=== PATIENT | female | born 1965 | race Caucasian/White ===

== ENCOUNTER 2016-11-12 04:53 | Emergency (ER) | payer BC ==
[2010-06-25 07:40] VITALS: BMI 25.1
[2016-11-12 05:38] LABS: BASOPHILS 0.1 % (0.0-2.0); EOSINOPHILS 0.5 % (0-7); HEMATOCRIT 42.9 % (36.0-48.0); IMMATURE GRANULOCYTES 0.3 % (0-5); LYMPHOCYTES 16.6 % (15-50); MCH 30.6 pg (26.0-34.0); MCHC 32.6 g/dL (31.0-37.0); MCV 93.7 fL (80.0-100.0); MEAN PLATELET VOLUME 9.7 fL (7.4-10.4); MONOCYTES 9.5 % (2-11); PLATELET COUNT 393 10x3/uL (130-400); RBC 4.58 10x6/uL (4.00-5.40); RDW 12.1 % (11.5-14.5)
[2016-11-12 06:00] LABS: ALBUMIN 3.9 g/dL (3.4-5.0); ALKALINE PHOSPHATASE 64 U/L (46-116); ALT (SGPT) 37 U/L (10-68); AMYLASE - SERUM 36 U/L (25-115); BILIRUBIN - TOTAL 0.51 mg/dL (0.2-1.3); CALC OSMOLALITY 281 mosm/kg (275-300); CALCIUM 9.5 mg/dL (8.5-10.1); CARBON DIOXIDE 24.8 mmol/L (21.0-32.0); CHLORIDE - SERUM 106 mmol/L (98-107); CREATININE - SERUM 0.8 mg/dL (0.6-1.3); GLUCOSE 108 mg/dL (74-106); LIPASE 118 U/L (73-393); POTASSIUM - SERUM 4.1 mmol/L (3.5-5.1); PROTEIN - SERUM 8.1 g/dL (6.4-8.2); SODIUM 142 mmol/L (136-145); UREA NITROGEN 8 mg/dL (7-18); eGFR NON AFRICAN AMERICAN 81 mL/min (90-120)
[2016-11-12 07:33] LABS: APPEARANCE HAZY (CLEAR); BILIRUBIN NEGATIVE (NEGATIVE); COLOR STRAW (YELLOW); GLUCOSE NEGATIVE (NEGATIVE); KETONE NEGATIVE (NEGATIVE); LEUKOCYTE ESTERASE NEGATIVE (NEGATIVE); NITRITE NEGATIVE (NEGATIVE); PROTEIN NEGATIVE (NEGATIVE); SPECIFIC GRAVITY 1.005 (1.005-1.020); UROBILINOGEN NORMAL (NORMAL)
== END 2016-11-12 11:16 | disposition home or self-care (01) ==
LOC: D.ER 04:53
PROVIDERS: Family Medicine
DX: K57.92 Diverticulitis of intestine, part unspecified, without perforation or abscess without bleeding (principal); K21.9 Gastro-esophageal reflux disease without esophagitis

== ENCOUNTER 2016-11-28 09:59 | Emergency (ER) | payer BC ==
[2010-06-25 07:40] VITALS: BMI 25.1
[2016-11-28 10:41] LABS: BASOPHILS 0.2 % (0.0-2.0); EOSINOPHILS 1.3 % (0-7); HEMATOCRIT 42.8 % (36.0-48.0); HEMOGLOBIN 14.1 g/dL (12-16); IMMATURE GRANULOCYTES 0.2 % (0-5); LYMPHOCYTES 20.7 % (15-50); MCH 30.2 pg (26.0-34.0); MCHC 32.9 g/dL (31.0-37.0); MCV 91.6 fL (80.0-100.0); MEAN PLATELET VOLUME 9.5 fL (7.4-10.4); MONOCYTES 11.8 % (2-11); NEUTROPHILS 65.8 % (40-80); PLATELET COUNT 455 10x3/uL (130-400); RBC 4.67 10x6/uL (4.00-5.40); RDW 11.8 % (11.5-14.5); WBC 11.2 10x3/uL (4.8-10.8)
[2016-11-28 10:52] LABS: AMYLASE - SERUM 32 U/L (25-115); LIPASE 86 U/L (73-393)
== END 2016-11-28 13:21 | disposition home or self-care (01) ==
LOC: D.ER 09:59
PROVIDERS: Emergency Medicine
DX: R10.13 Epigastric pain (principal); K29.00 Acute gastritis without bleeding; R11.10 Vomiting, unspecified; K21.9 Gastro-esophageal reflux disease without esophagitis

== ENCOUNTER → 2017-01-07 09:47 | Outpatient (CLI) | payer BC ==
[2010-06-25 07:40] VITALS: BMI 25.1
[2017-01-07 11:49] LABS: BASOPHILS 0.2 % (0-2); EOSINOPHILS 1.2 % (0-7); HEMOGLOBIN 13.8 g/dL (12-16); IMMATURE GRANULOCYTES 0.3 % (0-5); LYMPHOCYTES 41.3 % (15-50); MCH 29.7 pg (26.0-34.0); MCHC 31.4 g/dL (31.0-37.0); MCV 94.6 fL (80.0-100.0); MEAN PLATELET VOLUME 9.9 fL (7.4-10.4); MONOCYTES 13.3 % (2-11); NEUTROPHILS 43.7 % (40-80); PLATELET COUNT 322 10x3/uL (130-400); RBC 4.65 10x6/uL (4.00-5.40); RDW 12.5 % (11.5-14.5); WBC 6.5 10x3/uL (4.8-10.8)
== END | disposition home or self-care (01) ==
LOC: D.CT 09:47
PROVIDERS: Internal Medicine Gastroenterology
DX: R10.32 Left lower quadrant pain (principal); K57.92 Diverticulitis of intestine, part unspecified, without perforation or abscess without bleeding

== ENCOUNTER 2019-02-15 09:02 | Emergency (ER) | payer BC ==
[~2019-02-15] VITALS: Ht 170.2 cm; Wt 79.5 kg
[2019-02-15 09:06] VITALS: Ht 170.2 cm; Wt 79.5 kg
[2019-02-15] MEDS ORDERED: PROTONIX40 MG PO (09:09)
[2019-02-15] MEDS ORDERED: PEPCID AC20 MG PO (09:09)
[2019-02-15] MEDS ORDERED: CARAFATE1 G PO (09:10)
[2019-02-15] MEDS ORDERED: PREMARIN0.625 MG PO (09:12)
[2019-02-15 09:49] LABS: BASOPHILS 0.2 % (0-2); EOSINOPHILS 1.2 % (0-7); HEMATOCRIT 39.8 % (36.0-48.0); HEMOGLOBIN 13.2 g/dL (12-16); IMMATURE GRANULOCYTES 0.2 % (0-5); LYMPHOCYTES 34.5 % (15-50); MCH 29.8 pg (26.0-34.0); MCHC 33.2 g/dL (31.0-37.0); MCV 89.8 fL (80.0-100.0); MEAN PLATELET VOLUME 9.6 fL (7.4-10.4); MONOCYTES 8.8 % (2-11); NEUTROPHILS 55.1 % (40-80); PLATELET COUNT 368 10x3/uL (130-400); RBC 4.43 10x6/uL (4.00-5.40); RDW 11.8 % (11.5-14.5); WBC 5.8 10x3/uL (4.8-10.8)
[2019-02-15 10:13] LABS: APPEARANCE HAZY (CLEAR); BILIRUBIN NEGATIVE (NEGATIVE); COLOR STRAW (YELLOW); GLUCOSE NEGATIVE (NEGATIVE); KETONE NEGATIVE (NEGATIVE); NITRITE NEGATIVE (NEGATIVE); PROTEIN NEGATIVE (NEGATIVE); SPECIFIC GRAVITY 1.005 (1.005-1.020); UROBILINOGEN NORMAL (NORMAL)
[2019-02-15 10:32] LABS: ALBUMIN 3.7 g/dL (3.4-5.0); ALKALINE PHOSPHATASE 52 U/L (46-116); ALT (SGPT) 18 U/L (10-68); BILIRUBIN - TOTAL 0.36 mg/dL (0.2-1.3); CALC OSMOLALITY 276 mosm/kg (275-300); CALCIUM 8.7 mg/dL (8.5-10.1); CARBON DIOXIDE 27.8 mmol/L (21.0-32.0); CHLORIDE - SERUM 104 mmol/L (98-107); CREATININE - SERUM 0.7 mg/dL (0.6-1.3); GLUCOSE 99 mg/dL (74-106); POTASSIUM - SERUM 3.7 mmol/L (3.5-5.1); PROTEIN - SERUM 7.9 g/dL (6.4-8.2); SODIUM 140 mmol/L (136-145); UREA NITROGEN 8 mg/dL (7-18); eGFR NON AFRICAN AMERICAN > 90 mL/min (90-120)
[2019-02-15 10:33] LABS: AMYLASE - SERUM 41 U/L (25-115); LIPASE 151 U/L (73-393)
[2019-02-15 10:35] LABS: CREATINE KINASE 59 UL (21-215)
[2019-02-15 10:37] LABS: TROPONIN-I < 0.017 ng/mL (0.000-0.060)
[2019-02-15 10:45] LABS: CKMB 0.2 U/L (0.0-3.6)
[2019-02-15] MEDS ORDERED: PERCOCET 5-3251 TAB PO (11:32)
[2019-02-15 12:14] VITALS: BP 145/82
== END 2019-02-15 12:15 | disposition home or self-care (01) ==
LOC: D.ER 09:02
PROVIDERS: Emergency Medicine
DX: K27.9 Peptic ulcer, site unspecified, unspecified as acute or chronic, without hemorrhage or perforation (principal)

== ENCOUNTER → 2019-02-22 14:07 | Outpatient (CLI) | payer BC ==
[2019-02-15 09:06] VITALS: BMI 27.4
[~2019-02-22 14:07] MED LIST: CARAFATE1 G PO; PEPCID AC20 MG PO; PERCOCET 5-3251 TAB PO; PREMARIN0.625 MG PO; PROTONIX40 MG PO
== END | disposition home or self-care (01) ==
LOC: D.NM 14:07
PROVIDERS: ATTEND Internal Medicine Gastroenterology
DX: R10.9 Unspecified abdominal pain (principal); R11.0 Nausea

== ENCOUNTER → 2019-04-12 12:59 | Outpatient (CLI) | payer BC ==
[2019-02-15 09:06] VITALS: BMI 27.4
== END | disposition home or self-care (01) ==
LOC: D.CT 12:59
PROVIDERS: ATTEND Internal Medicine Gastroenterology
DX: R10.13 Epigastric pain (principal); K21.9 Gastro-esophageal reflux disease without esophagitis; K44.9 Diaphragmatic hernia without obstruction or gangrene